=== PATIENT | female | born 1950 | race Caucasian/White ===

== ENCOUNTER 2017-07-27 12:52 | Emergency (ER) | payer OTHER ==
[~2017-07-27] VITALS: Ht 165.1 cm; Wt 60.9 kg
[2017-07-27 12:54] VITALS: BP 132/92; PULSE 128; RESP 19; O2SAT 97
--- NOTE | 2017-07-27 13:09 | ED.REPORT ---
HPI-Chest Pain 40 and Over Date of Service Jul 27, 2017 ED Provider: Hay Gutiérrez MD Patient is a 67 year old female who presents to the ED via EMS due to atrial fibrillation with RVR. She denies shortness of breath, chest pain or other symptoms at this time. The patient reports that she began feeling heart palpitations around 0800 this morning. Patient went to where her heart rate was in the 170's. En route, EMS gave the patient Diltiazem. She is not currently on any anticoagulants. Nursing Notes Stated Complaint: RAPID HEART RATE Nursing Notes Reviewed: Yes Allergies: Coded Allergies: cephalexin (Verified Allergy, Unknown, 07/27/17) erythromycin base (Verified Allergy, Unknown, 07/27/17) hydroxychloroquine (Verified Allergy, Unknown, 07/27/17) lovastatin (Verified Allergy, Unknown, 07/27/17) metronidazole (Verified Allergy, Unknown, 07/27/17) prednisone (Verified Allergy, Unknown, 07/27/17) Scheduled Aspirin (Aspirin) 81 Mg Tablet 81 MG PO DAILY Metoprolol Tartrate (Metoprolol Tartrate) 25 Mg Tablet 12.5 MG PO BID Scheduled PRN Acetaminophen/Codeine 300-30mg (Tylenol/Codeine #3) 1 Each Tablet 1 TABLET PO TID PRN PRN Pain Cyclobenzaprine (Cyclobenzaprine) 10 Mg Tablet 5-10 MG PO TID PRN PRN Spasm Meloxicam (Meloxicam) 15 Mg Tablet 15 MG PO DAILY PRN PRN For Pain General Time Seen by MD: 13:09 Chief Complaint Other Hx Obtained From: Patient Arrived By: Ambulance Sudden in Onset?: Yes Onset Occurred: 1 - 4 hours ago Symptom Duration: Since onset Severity: Current: No pain currently Recent Healthcare: Recent doctor visit Similar Sx Previous: No Past Medical History Past Medical History herniated disc Smoking History Current Every Day Smoker Social History Alcohol Use: "Social" Ambulatory Status Independent Review of Systems Constitutional: Denies: Chills, Fever Respiratory: Denies: Non-productive cough, Shortness of breath Cardiovascular: Reports: Palpitations, Denies: Chest pain Skin: Denies Itching, Denies Rash Complete sys rev & neg: except as marked. Physical Exam Initial Vital Signs Vital Signs (First) Date Time Temp Pulse Resp B/P Pulse Ox O2 Delivery O2 Flow Rate FiO2 07/27/17 12:54 37.0 128 19 132/92 97 Room Air Initial VS: Reviewed General/Constitutional: Awake, Alert Respiratory / Chest: Atraumatic, Breath sounds NL, Breath sounds = bilat, No respiratory distress Cardiovascular: No murmurs Heart Rate / Rhythm: Positive: Tachycardia Abdomen: Atraumatic, Soft, Non-tender Lower Extremity / Pelvis / MS: Atraumatic, Full range of motion Skin: Atraumatic, Color NL, No rash, Warm, Dry Neurologic: Oriented X3, Speech NL Head / Eyes: Atraumatic, Normocephalic, PERRL, EOMI Upper Extremity / MS: Atraumatic, Full range of motion Interpretation & Diagnostics Lab Results Interpretation Result Diagram: 07/27/17 1337 07/27/17 1337 Test 07/27/17 13:37 White Blood Count 8.7th/mm3 (3.8-10.1) Red Blood Count 4.59mil/mm3 (3.90-5.20) Hemoglobin 15.9g/dL (12.0-15.6) Hematocrit 45.1% (35.0-46.0) Mean Corpuscular Volume 98.3fL (81-100) Mean Corpuscular Hemoglobin 34.6pg (27.0-35.0) Mean Corpuscular Hemoglobin Concent 35.3% (32.0-37.0) Red Cell Distribution Width 12.7% (12.3-15.4) Platelet Count 300bil/L (150-400) Neutrophils (%) (Auto) 60.5% (40-74) Lymphocytes (%) (Auto) 24.1% (14-46) Monocytes (%) (Auto) 10.8% (4-12) Eosinophils (%) (Auto) 2.9% (0-5) Basophils (%) (Auto) 1.6% (0-3) Sodium Level 138mEq/L (134-144) Potassium Level 4.3mEq/L (3.5-5.2) Chloride Level 98mEq/L (97-108) Carbon Dioxide Level 17mmol/L (18-29) Blood Urea Nitrogen 15mg/dL (8-27) Creatinine 0.52mg/dL (0.57-1.00) Estimat Glomerular Filtration Rate 170mL/min (>59) Glucose Level 91mg/dL (60-99) Calcium Level 9.8mg/dL (8.5-10.1) Magnesium Level 2.1mg/dL (1.6-2.6) Total Bilirubin 0.9mg/dL (0.0-1.2) Aspartate Amino Transf (AST/SGOT) 106U/L (0-50) Alanine Aminotransferase (ALT/SGPT) 65U/L (0-32) Alkaline Phosphatase 105U/L (25-165) Troponin T < 0.010ug/L (0.0-0.011) Total Protein 8.0g/dL (6.4-8.4) Albumin 4.3g/dL (3.4-5.0) ECG Interpretation ECG Interpretation: atrial fibrillation with RVR, rate 116 Time: 13:04 Interpreted by: ED physician X-Ray Chest Interpretation Chest Xray Interpretation: IMPRESSION: Stable chest. No acute cardiopulmonary process is evident. Dictated by: Carson Jimenez M.D. on 07/27/2017 at 12:52 Approved by: Carson Jimenez M.D. on 07/27/2017 at 12:53 Interpretation / Wet Read by: Interpret - Radiologist Re-Eval/Medical Decision Med Decision/Clinical Course 67-year-old female history of paroxysmal atrial fibrillation presenting with atrial fibrillation with RVR. Heart rate was 170 en route given diltiazem by paramedics. Multiple doses given here and as patient was being prepared to be admitted for atrial fibrillation with RVR on diltiazem drip she converted into sinus rhythm prior to the drip being started. Patient requested to go home. She understands the risk that she could go back into atrial fibrillation with RVR. She agrees to return immediately if she has any recurrent symptoms. I discharged her on a low-dose beta gerard and baby aspirin given low chads 2 score. She will follow-up with her primary doctor and cardiology. Return precautions given. Time of Eval: 14:54 Re-Evaluation/Progress Note: Discussed results and plan for admit. Patient understands and agrees to plan. All questions were addressed. Consultation : Consulted With: Hospitalist Wreath Machine Operator: Agrees with eval, Agrees with plan, Accepts admit Counseled Regarding: Diagnosis, Lab results, Need for admission Discharge & Departure Primary Impression: Atrial fibrillation with RVR Disposition: ADMITTED TO HOSPITAL Discharge Condition All VS Reviewed: Yes Condition: Stable Referrals: Dre Cifuentes MD (PCP) Crit Care Except Billable Proc Time Spent: 30-74 minutes (32) Services Performed: Patient management by me, Time spent at bedside, Reviewing test results, Reviewing imaging, Discussing patient care, Documentation in record Scribe Attestation Portions of this note were transcribed by Tessa Zazueta. I, Dr. Gutiérrez personally performed the history, physical exam and medical decision-making; I reviewed and confirmed the accuracy of the information in the transcribed note. Signed by: Irasema Urbano, 07/27/17 copies to: Dre Cifuentes MD, Ben M MD Jul 27, 2017 13:09 Lorena Zazueta Jul 27, 2017 13:18
[2017-07-27] MEDS ORDERED: Diltiazem 5 mg/mL 5 mL Inj IVPUSH ONE ×2 (13:30→14:10)
[2017-07-27] MEDS ORDERED: 0.9% Sodium Chloride 1,000 ML IV ONE (13:30)
[2017-07-27] MEDS ORDERED: MELO-253 PO (13:42)
[2017-07-27] MEDS ORDERED: ACET1TAB12 PO (13:42)
[2017-07-27] MEDS ORDERED: CYCL10TA9 PO (13:42)
[2017-07-27 13:51] LABS: BASOPHILS % (AUTO) 1.6 % (0-3); EOSINOPHILS % (AUTO) 2.9 % (0-5); MONOCYTES % (AUTO) 10.8 % (4-12); Mean Corpuscular Hemoglobin 34.6 pg (27.0-35.0); Mean Corpuscular Volume 98.3 fL (81-100); NEUTROPHILS % (AUTO) 60.5 % (40-74); Platelet Count 300 bil/L (150-400)
--- NOTE | 2017-07-27 13:55 | DRSVH ---
PROCEDURE: X-RAY CHEST ONE VIEW, PORTABLE ([id number]) INDICATIONS: dyspnea TECHNIQUE: One view of the chest was acquired. COMPARISON: [facility], CR, CHEST 2VW, 11/21/2010, 12:00. FINDINGS: Surgical changes and devices: None. Lungs and pleura: The aeration of the lungs is similar to the prior study. Increased interstitial ma rkings within the infrahilar regions are unchanged since the prior study. Scarring versus calcified pleural plaques within the bilateral lung apices are noted. Mediastinum: Mediastinal contours appear normal. Heart size is normal. There appears to be aortic atherosclerosis. Bones and chest wall: No suspicious bony lesions. Overlying soft tissues appear unremarkable. IMPRESSION: Stable chest. No acute cardiopulmonary process is evident. Dictated by: Carson Jimenez M.D. on 07/27/2017 at 12:52 Approved by: Carson Jimenez M.D. on 07/27/2017 at 12:53
[2017-07-27 14:01] VITALS: BP 112/94; PULSE 130; RESP 14; O2SAT 98
[2017-07-27 14:06] LABS: TROPONIN T < 0.010 ug/L (0.0-0.011)
[2017-07-27 14:07] LABS: Magnesium 2.1 mg/dL (1.6-2.6)
[2017-07-27] MEDS ORDERED: Diltiazem Inj 125 MG in Dextrose 5% 100 ML IV SCH (14:54)
[2017-07-27] MEDS ORDERED: Ondansetron 2 mg/mL 2 mL Inj IVPUSH PRN (15:05)
[2017-07-27] MEDS ORDERED: Alum-Mag Hydrox-Simeth 30 mL Suspension PO PRN (15:05)
[2017-07-27] MEDS ORDERED: ASPI-973 PO (15:26)
[2017-07-27] MEDS ORDERED: METO25TA6 PO (15:26)
[2017-07-27 15:38] VITALS: BP 138/91; PULSE 88; RESP 16; O2SAT 99
== END 2017-07-27 15:35 | disposition home or self-care (01) ==
LOC: EDBD 12:52 → EDUNIT# 12:52 → SED 12:52
DX: I48.91 Unspecified atrial fibrillation (principal); F17.200 Nicotine dependence, unspecified, uncomplicated; Z79.82 Long term (current) use of aspirin; Z88.1 Allergy status to other antibiotic agents; Z88.8 Allergy status to other drugs, medicaments and biological substances
CPT/HCPCS: 36415; 71010; 80053; 83735; 84484; 85025; 93005; 96361; 96374; 99291; J7030

== ENCOUNTER 2017-08-17 12:39 | Emergency (ER) | payer OTHER ==
[~2017-08-17] VITALS: Ht 165.1 cm; Wt 60.9 kg
[~2017-08-17 12:39] MED LIST: ACET1TAB12 PO; ASPI-973 PO; CYCL10TA9 PO; MELO-253 PO; METO25TA6 PO
[2017-08-17 12:47] VITALS: BP 159/99; PULSE 86; RESP 16; O2SAT 100
--- NOTE | 2017-08-17 13:14 | ED.REPORT ---
HPI-General Illness Date of Service Aug 17, 2017 ED Provider: Parisa Oliveira MD The pt is a 67 y/o female w/ a hx of A-fib presenting to the ED c/o a headache onset 5 days ago. She is also feeling nauseated, eye pain, weakness, and dizzy. The pt was sent here by her pit tanner for a head CT. The pt was started on Eliquis 5 days ago for her A-fib, prescribed by Dr. Yap, and suspects her symptoms may b e a side effect. Denies fevers. The pt also describes increased headaches when the outside "weather pressure" changes. Nursing Notes Stated Complaint: HEADACHE,DIZZY,NAUSEA Chief Complaint: Headache Nursing Notes Reviewed: Yes Allergies: Coded Allergies: cephalexin (Verified Allergy, Unknown, 08/17/17) erythromycin base (Verified Allergy, Unknown, 08/17/17) hydroxychloroquine (Verified Allergy, Unknown, 08/17/17) lovastatin (Verified Allergy, Unknown, 08/17/17) metronidazole (Verified Allergy, Unknown, 08/17/17) prednisone (Verified Allergy, Unknown, 08/17/17) Scheduled Aspirin (Aspirin) 81 Mg Tablet 81 MG PO DAILY Metoprolol Tartrate (Metoprolol Tartrate) 25 Mg Tablet 12.5 MG PO BID Scheduled PRN Acetaminophen/Codeine 300-30mg (Tylenol/Codeine #3) 1 Each Tablet 1 TABLET PO TID PRN PRN Pain Cyclobenzaprine (Cyclobenzaprine) 10 Mg Tablet 5-10 MG PO TID PRN PRN Spasm Meloxicam (Meloxicam) 15 Mg Tablet 15 MG PO DAILY PRN PRN For Pain General Time Seen by MD: 13:12 Chief Complaint Headache Hx Obtained From: Patient, Spouse Arrived By: Walk-in Sudden in Onset?: Yes Onset Occurred: 5 days ago Symptom Duration: Since onset Recent Healthcare: No recent hospitalization, Recent doctor visit Similar Sx Previous: Yes Past Medical History Past Medical History herniated disc Reports: Atrial fibrillation Past Surgical History None reported Smoking History Current Every Day Smoker Social History Alcohol Use: "Social" Other Social History: Good social support Ambulatory Status Independent Review of Systems +Eye pain; Full Review of Systems Constitutional: Denies: Fever GI: Reports: Nausea Neurologic: Reports: Dizziness, Headache, Weakness Complete sys rev & neg: except as marked. Physical Exam Vital Signs Vital Signs Date Time Temp Pulse Resp B/P Pulse Ox O2 Delivery O2 Flow Rate FiO2 08/17/17 12:47 36.6 86 16 159/99 100 Room Air Initial VS: Reviewed General/Constitutional: Well-developed, Well-nourished Head / Eyes: Atraumatic, Normocephalic, PERRL ENT: Mucous membranes moist, Conjunctiva normal, No scleral icterus Neck: Supple, Non-tender, Full range of motion Respiratory: Breath sounds normal, Clear to auscultation, No respiratory distress Cardiovascular: Regular rate & rhythm, Heart sounds normal, Intact distal pulses Extremities: Vascular intact, Neuro intact, No swelling, No tenderness Skin: Warm, Dry, No cyanosis Neurologic: Alert, Oriented, Nonfocal Psychiatric: Mood/affect normal, Behavior normal, Normal thought content Interpretation & Diagnostics CT Head Interpretation IMPRESSION: 1. No acute intracranial abnormality. Dictated by: Mika Cole M.D. on 08/17/2017 at 13:25 Approved by: Mika Cole M.D. on 08/17/2017 at 13:29 Study: Head CT no contrast Interpretation / Wet Read by: Interpret - Radiologist Re-Eval/Medical Decision Time of Eval: 14:45 Re-Evaluation/Progress Note: Pt rechecked. F/U instructions and RTER warnings given. All questions addressed. Consultation : Referral / Consult Name: Marshall Yap MD Consulted With: Cardiology Call Returned at: 14:44 Note: Dr. Yap agrees w/ plan to stop eliquis and will see the pt for further follow up. Counseled Regarding: Diagnosis, Lab results, Need for follow-up, When/why to return to ED Discharge & Departure Primary Impression: Adverse reaction to drug Encounter type: initial encounter Qualified Code: T88.7XXA - Unspecified adverse effect of drug or medicament, initial encounter Ruled Out: Intracranial bleed Disposition: Home Discharge Condition All VS Reviewed: Yes Condition: Stable Additional Instructions: Thank for you entrusting us with your care today. Please stop the eliquis today and keep track of your symptoms. Please contact Dr Yap's office for the metoprolol refill. Your CT scan was reassuring and showed no signs of intracranial bleeding but please return to the emergency department if you experience any new or worsening symptoms. I hope you feel better soon. Referrals: Dre Cifuentes MD (PCP) Marshall Yap MD Scribe Attestation Portions of this note were transcribed by Sarath Brooks. I, Dr. Oliveira personally performed the history, physical exam and medical decision-making; I reviewed and confirmed the accuracy of the information in the transcribed note. copies to: Marshall Yap MD; Dre Cifuentes MD, Shawna L MD Aug 17, 2017 13:14 Sarath Brooks Aug 17, 2017 13:42 Parisa Oliveira MD Aug 17, 2017 13:14 Sarath Brooks Aug 17, 2017 13:42
--- NOTE | 2017-08-17 13:30 | DRSVH ---
PROCEDURE: CT BRAIN WITHOUT CONTRAST ([id number]) INDICATIONS: headache, dizziness after starting on eliquis TECHNIQUE: Noncontrast 4.5 mm thick angled axial sections acquired from the foramen magnum to the vertex, with c oronal reformats. COMPARISON: None. FINDINGS: Image quality: Excellent. CSF spaces: Basal cisterns are patent. No extra-axial fluid collections. Ventricles are normal in size and shape. Brain: No intracranial hemorrhage, mass, or mass effect. Mendoza-white matter interface is preserved. Skull and face: Calvarium and visualized facial bones are intact, without suspicious lesions. Sinuses: Visualized sinuses and mastoids are clear. IMPRESSION: 1. No acute intracranial abnormality. Dictated by: Mika Cole M.D. on 08/17/2017 at 13:25 Approved by: Mika Cole M.D. on 08/17/2017 at 13:29
[2017-08-17 14:53] VITALS: BP 148/84; PULSE 80; RESP 16; O2SAT 100
== END 2017-08-17 15:05 | disposition home or self-care (01) ==
LOC: SED 12:39
DX: R51 Headache (principal); R11.0 Nausea; R42 Dizziness and giddiness; R53.1 Weakness; H57.10 Ocular pain, unspecified eye; T45.515A Adverse effect of anticoagulants, initial encounter; Y93.89 Activity, other specified; Y92.89 Other specified places as the place of occurrence of the external cause; Y99.8 Other external cause status; I48.91 Unspecified atrial fibrillation; F17.200 Nicotine dependence, unspecified, uncomplicated; Z79.82 Long term (current) use of aspirin; Z88.1 Allergy status to other antibiotic agents; Z88.8 Allergy status to other drugs, medicaments and biological substances